=== PATIENT | female | born 1940 | race Caucasian/White ===

== ENCOUNTER → 2018-04-20 | Day surgery (SDC) | payer MEDICARE, OTHER ==
[~2018-04-20] MED LIST: BUPIVACAINE HCL PF 0.75% 30 ML VIAL ONE; CITA40TA4 PO; FAMO40TA PO; FEXO180T PO; FLUT50SP EACH NARE; LEVO.125 PO; NEXI40CA PO; PROPOFOL 200 MG/20 ML AMP IV ONE; SIMV5TAB3 PO; TRIAMCINOLONE ACETONIDE 40 MG/ML VIAL I-ARTICULR ONE
--- NOTE | 2018-04-20 10:27 | M6 ---
cc: Altaf Gonzalez MD DATE: 04/20/2018 PROCEDURE PERFORMED: Fluoroscopically-guided injection of right lumbar facet joints (right L3-L4, L4-L5, and L5-S1 facet joints). History and physical was completed and signed. Consent was signed. Procedure site was marked. Medications were listed and reconciled. Pain score was recorded. Allergies were noted. Time out was taken. Fluoroscopy time was recorded where applicable. Sedation was administered or directed by Dr. Gonzalez. The patient was given oxygen. The patient was monitored by a registered nurse. Total procedure time was greater than 15 minutes. IV was started. Blood pressure cuff, pulse oximeter and EKG were applied. The patient was placed in the prone position on a Adryan table, sedated with small amounts of propofol titrated to effect. Vital signs were monitored and remained stable throughout the procedure. The lumbar area was prepped with alcohol and 10% Betadine solution and draped with sterile drapes. Fluoroscopy was used in a Sai dog view to clearly visualize the right lumbar facet joints at L3-L4, L4-L5, and L5-S1. Separate sterile 3.5-inch, 25-gauge needles were placed into each joint. There was negative aspiration for blood or any other type of fluid, and at each location, the patient was given 1 mL of Marcaine 0.75%, which contained 10 mg of Kenalog. Following the procedure, the patient was taken to the recovery room with stable vital signs, neurologically intact. She will be evaluated immediately and with followup to determine if she has a subjective decrease in her usual pain and a corresponding objective increase in her functional capabilities. MD WILLARD Barnett/RHETT , 10:12 AM , 10:25 AM
== END | disposition home or self-care (01) ==
LOC: PHSDC 08:07
PROVIDERS: ATTEND Pain Medicine Interventional Pain Medicine
DX: M54.5 Low back pain (principal)
CPT/HCPCS: 64493; 64494; 64495; 99152; J3301